=== PATIENT | female | born 1980 | race Two or more races ===

== ENCOUNTER 2017-07-27 06:05 | Emergency (ER) | payer BC, MEDICAID ==
[2017-07-27] MEDS ORDERED: predniSONE 20 MG Tab PO ONE (06:30)
[2017-07-27] MEDS ORDERED: diphenhydrAMINE 25 MG Cap PO ONE (06:30)
[2017-07-27] MEDS ORDERED: Famotidine 20 MG Tab PO ONE (06:30)
[2017-07-27 06:32] VITALS: BP 180/117
--- NOTE | 2017-07-27 06:46 | EDM.PDOC ---
ED HPI GENERAL MEDICAL PROBLEM - General Chief Complaint: Allergic Reaction Stated Complaint: rash Time Seen by Provider: 07/27/17 06:30 Source of Information: Reports: Patient History Limitations: Reports: No Limitations - History of Present Illness INITIAL COMMENTS - FREE TEXT/NARRATIVE: PT STATES WHILE SHE WAS WORKING LAST NIGHT DEVELOPED ITCHING TO RIGHT FOREARM. WOKE THIS AM AND ITCHING BECAME WORSE AND NOW HAS RED BUMPS. DENIES CP, SOB, TONGUE OR LIP EDEMA, NEW MEDICATION, DETERGENT, OR FOODS. Onset: Gradual Onset Date: 07/26/17 Duration: Day(s): Location: Reports: Upper Extremity, Right Quality: Reports: Burning Severity: Mild Improves with: Reports: None Worsens with: Reports: Other (SCRATCHING) Associated Symptoms: Reports: No Other Symptoms - Related Data Allergies Allergy/AdvReac Type Severity Reaction Status Date / Time Sulfa (Sulfonamide Allergy Airway Verified 07/27/17 06:09 Antibiotics) Tightness Home Meds: Home Meds Escitalopram [Lexapro] 10 mg PO DAILY 07/27/17 [History] LORazepam [Ativan] 0.5 mg PO PRN 07/27/17 [History] amLODIPine [Norvasc] 5 mg PO DAILY 07/27/17 [History] metFORMIN [Glucophage] 500 mg PO BIDMEALS 07/27/17 [History] Past Medical History HEENT History: Reports: Impaired Vision Genitourinary History: Reports: None [employer]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 Constitutional: Reports: No Symptoms HEENT: Reports: No Symptoms Respiratory: Reports: No Symptoms Cardiovascular: Reports: No Symptoms Endocrine: Reports: No Symptoms GI/Abdominal: Reports: No Symptoms : Reports: No Symptoms Musculoskeletal: Reports: No Symptoms Skin: Reports: Rash (RIGHT FOREARM) Neurological: Reports: No Symptoms Psychiatric: Reports: No Symptoms Hematologic/Lymphatic: Reports: No Symptoms Immunologic: Reports: No Symptoms ED EXAM GENERAL NO PERIP PULSE - Physical Exam Exam: See Below Exam Limited By: No Limitations General Appearance: Alert, WD/WN, No Apparent Distress Eye Exam: Bilateral Eye: Normal Inspection Nose: Normal Inspection, Normal Mucosa Throat/Mouth: Normal Inspection, Normal Oropharynx, No Airway Compromise Neck: Normal Inspection. No: Lymphadenopathy (L), Lymphadenopathy (R) Respiratory/Chest: No Respiratory Distress, Lungs Clear, Normal Breath Sounds Cardiovascular: Regular Rate, Rhythm Extremities: Normal Inspection, No Pedal Edema Neurological: Alert, Oriented, Normal Cognition Psychiatric: Normal Affect, Normal Mood Skin Exam: Warm, Dry, Intact, Normal Color, Rash (CONFLUENT RED PAPULES WITH ERYTHEMATOUS NAIL SCATCHING LINES) Lymphatic: No Adenopathy Course - Vital Signs Last Recorded V/S: Last Vital Signs Temp 98.5 F 07/27/17 06:30 Pulse 86 07/27/17 06:30 Resp 20 07/27/17 06:30 BP 180/117 H 07/27/17 06:30 Pulse Ox 97 07/27/17 06:30 - Orders/Labs/Meds Meds: Medications Discontinued Medications Generic Name Dose Route Start Last Admin Trade Name Freq PRN Reason Stop Dose Admin Diphenhydramine HCl 25 mg 07/27/17 06:30 Benadryl PO 07/27/17 06:31 ONETIME ONE Famotidine 20 mg 07/27/17 06:30 Pepcid PO 07/27/17 06:31 ONETIME ONE Prednisone 40 mg 07/27/17 06:30 Prednisone PO 07/27/17 06:31 ONETIME ONE - Re-Assessments/Exams Free Text/Narrative Re-Assessment/Exam: 07/27/17 07:07 PT AFEBRILE, NONTOXIC APPEARING, ITCHING AND RASH RESOLVING. Departure - Departure Time of Disposition: 07:08 Disposition: Home, Self-Care 01 Condition: Good Clinical Impression: Rash and nonspecific skin eruption Allergic reaction Qualifiers: Encounter type: initial encounter Qualified Code(s): T78.40XA - Allergy, unspecified, initial encounter - Discharge Information Instructions: Rash, Allergies, [id number] Forms: ED Department Discharge - Assessment/Plan Assessment:: RASH / ALLERGIC REACTION Plan: F/U WITH PCP
== END 2017-07-27 07:20 | disposition home or self-care (01) ==
LOC: KA.ED 06:05
DX: T78.40XA Allergy, unspecified, initial encounter (principal); R21 Rash and other nonspecific skin eruption; F41.9 Anxiety disorder, unspecified; E66.9 Obesity, unspecified; Z88.2 Allergy status to sulfonamides; Z79.899 Other long term (current) drug therapy; Z79.84 Long term (current) use of oral hypoglycemic drugs
CPT/HCPCS: 99283; A9270

== ENCOUNTER 2017-08-20 22:55 | Emergency (ER) | payer MEDICAID ==
[2017-08-20] MEDS ORDERED: Sodium Chloride 0.9% 5 ML Syringe FLUSH PRN (23:40)
[2017-08-20] MEDS ORDERED: Sodium Chloride 0.9% 1,000 ML IV ONE (23:40)
[2017-08-20] MEDS ORDERED: Ketorolac 30 MG/ML SDV IVPUSH ONE (23:40)
--- NOTE | 2017-08-20 23:46 | EDM.PDOC ---
ED HPI GENERAL MEDICAL PROBLEM - General Chief Complaint: General Stated Complaint: pelvic pain Time Seen by Provider: 08/20/17 23:38 Source of Information: Reports: Patient History Limitations: Reports: No Limitations - History of Present Illness INITIAL COMMENTS - FREE TEXT/NARRATIVE: PT PRESENTS WITH LOWER ABD AND BILAT FLANK PAIN ON/OFF FOR PAST MONTH. BECAME WORSE TODAY. SEEN AT [facility] A MONTH AGO AND HAD US WHICH IS SAID TO BE NEGATIVE. NO RADIOLOGY DOCUMENTATION AVAILABLE AT THIS TIME. SEEN 2 WEEKS AGO FOR SAME AND TOLD IT WAS OVULATION PAIN. SEEN AGAIN LAST WEEK AND GIVEN ABX FOR UTI. PAIN DESCRIBED SHARP AND RADIATING TO VAGINA. HAS NOT HAD MENSES FOR OVER A YEAR. DENIES DYSURIA, SEXUAL ACTIVITY, VAG DISCHARGE, BLOOD IN URINE OR STOOL, N/V/D, FEVER, OR ANY TRAUMA. ADMITS TO OVARIAN CYST YEARS AGO. Onset: Gradual Duration: Chronic, Getting Worse Location: Reports: Abdomen, Back Quality: Reports: Sharp Severity: Moderate Improves with: Reports: None Worsens with: Reports: None Associated Symptoms: Reports: No Other Symptoms. 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 - Related Data Allergies Allergy/AdvReac Type Severity Reaction Status Date / Time Sulfa (Sulfonamide Allergy Airway Verified 08/20/17 23:32 Antibiotics) Tightness Home Meds: Home Meds Escitalopram [Lexapro] 10 mg PO DAILY 07/27/17 [History] LORazepam [Ativan] 0.5 mg PO BID PRN 07/27/17 [History] amLODIPine [Norvasc] 5 mg PO DAILY 07/27/17 [History] metFORMIN [Glucophage] 500 mg PO BIDMEALS 07/27/17 [History] Past Medical History HEENT History: Reports: Impaired Vision Cardiovascular History: Reports: Hypertension Genitourinary History: Reports: None 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 Constitutional: Reports: No Symptoms HEENT: Reports: No Symptoms Respiratory: Reports: No Symptoms Cardiovascular: Reports: No Symptoms Endocrine: Reports: No Symptoms GI/Abdominal: Reports: Abdominal Pain : Reports: Flank Pain, Irregular Menses Musculoskeletal: Reports: No Symptoms Skin: Reports: No Symptoms Neurological: Reports: No Symptoms Psychiatric: Reports: No Symptoms Hematologic/Lymphatic: Reports: No Symptoms Immunologic: Reports: No Symptoms ED EXAM, GENERAL - Physical Exam Exam: See Below Exam Limited By: No Limitations General Appearance: Alert, WD/WN, Mild Distress Nose: Normal Inspection, Normal Mucosa, No Blood Throat/Mouth: Normal Inspection, Normal Oropharynx, No Airway Compromise Head: Atraumatic, Normocephalic Neck: Normal Inspection Respiratory/Chest: No Respiratory Distress, Lungs Clear, Normal Breath Sounds, No Accessory Muscle Use, Chest Non-Tender Cardiovascular: Regular Rate, Rhythm, No Murmur GI/Abdominal: Normal Bowel Sounds, Soft, No Abnormal Bruit, No Mass, Tender ( SUPRAPUBIC). No: Guarding, Rigid, Rebound Back Exam: CVA Tenderness (L), CVA Tenderness (R) Extremities: Normal Inspection, No Pedal Edema Neurological: Alert, Oriented, Normal Cognition Course - Orders/Labs/Meds Orders: Active Orders 24 hr Category Date Time Status Peripheral IV Care [RC] . DIRECTED Care 08/20/17 23:40 Ordered Abdomen Pelvis wo Cont [CT] Stat Exams 08/20/17 23:38 Ordered CBC WITH AUTO DIFF [HEME] Stat Lab 08/20/17 23:28 Ordered CMP [COMPREHENSIVE METABOLIC PN,CMP] [CHEM] Stat Lab 08/20/17 23:28 Ordered CULTURE URINE [RM] Stat Lab 08/20/17 23:38 Uncollected , SERUM [REF] Stat Lab 08/20/17 23:38 Ordered UA W/MICROSCOPIC [URIN] Stat Lab 08/20/17 23:29 Ordered Ketorolac [Toradol] Med 08/20/17 23:40 Once 30 mg IVPUSH ONETIME ONE Sodium Chloride 0.9% @ 999 MLS/HR (1000ml) Med 08/20/17 23:40 Ordered Sodium Chloride 0.9% [Normal Saline] 1,000 ml IV .BOLUS Sodium Chloride 0.9% [Syrex Flush] Med 08/20/17 23:40 Ordered 5 ml FLUSH Q8HR PRN Peripheral IV Insertion Adult [OM.PC] Routine Oth 08/20/17 23:40 Ordered - Radiology Interpretation Free Text/Narrative:: 5 mm left distal stone prox to left uvj and mild left hydronephrosis CT Results Date: 08/21/17 - Re-Assessments/Exams Free Text/Narrative Re-Assessment/Exam: 08/21/17 01:45 PT AFEBRILE, NONTOXIC APPEARING, VSS, PAIN RELIEVED, FEELS BETTER Departure - Departure Time of Disposition: 01:46 Disposition: Home, Self-Care 01 Condition: Good Clinical Impression: Renal calculus, left Hematuria Qualifiers: Hematuria type: unspecified type Qualified Code(s): R31.9 - Hematuria, unspecified - Discharge Information Instructions: Kidney Stones, Hematuria, Adult Referrals: Yaima Soria MD [Physician] - Additional Instructions: FOLLOW UP AT [facility] IN MORNING - My Orders Last 24 Hours: My Active Orders 08/20/17 23:28 CBC WITH AUTO DIFF [HEME] Stat CMP [COMPREHENSIVE METABOLIC PN,CMP] [CHEM] Stat 08/20/17 23:29 UA W/MICROSCOPIC [URIN] Stat 08/20/17 23:38 Abdomen Pelvis wo Cont [CT] Stat CULTURE URINE [RM] Stat , SERUM [REF] Stat 08/20/17 23:40 Peripheral IV Care [RC] . DIRECTED Ketorolac [Toradol] 30 mg IVPUSH ONETIME ONE Sodium Chloride 0.9% @ 999 MLS/HR (1000ml) Sodium Chloride 0.9% [Normal Saline] 1,000 ml IV .BOLUS Sodium Chloride 0.9% [Syrex Flush] 5 ml FLUSH Q8HR PRN Peripheral IV Insertion Adult [OM.PC] Routine - Assessment/Plan Last 24 Hours: My Active Orders 08/20/17 23:28 CBC WITH AUTO DIFF [HEME] Stat CMP [COMPREHENSIVE METABOLIC PN,CMP] [CHEM] Stat 08/20/17 23:29 UA W/MICROSCOPIC [URIN] Stat 08/20/17 23:38 Abdomen Pelvis wo Cont [CT] Stat CULTURE URINE [RM] Stat , SERUM [REF] Stat 08/20/17 23:40 Peripheral IV Care [RC] . DIRECTED Ketorolac [Toradol] 30 mg IVPUSH ONETIME ONE Sodium Chloride 0.9% @ 999 MLS/HR (1000ml) Sodium Chloride 0.9% [Normal Saline] 1,000 ml IV .BOLUS Sodium Chloride 0.9% [Syrex Flush] 5 ml FLUSH Q8HR PRN Peripheral IV Insertion Adult [OM.PC] Routine Assessment:: RENAL CALCULI / HEMATURIA Plan: F/U AT [facility] IN AM
[2017-08-21 00:22] LABS: CHLORIDE,CL 104 mmol/L (98-115); SODIUM,NA 141 mmol/L (136-145)
[2017-08-21 00:41] VITALS: BP 147/75
[2017-08-21] MEDS ORDERED: Ketorolac 30 MG/ML SDV IVPUSH ONE (01:20)
[2017-08-21] MEDS ORDERED: Ketorolac 30 MG/ML SDV ONE (01:21)
[2017-08-21] MEDS ORDERED: Acetaminophen/oxyCODONE 325-5 MG Tab PO ONE (01:47)
[2017-08-21] MEDS ORDERED: Ondansetron 4 MG Tab.DIS PO ONE (01:47)
== END 2017-08-21 02:15 | disposition home or self-care (01) ==
LOC: KA.ED 22:55
DX: N13.2 Hydronephrosis with renal and ureteral calculous obstruction (principal); I10 Essential (primary) hypertension; Z88.2 Allergy status to sulfonamides; Z79.84 Long term (current) use of oral hypoglycemic drugs; Z79.899 Other long term (current) drug therapy
CPT/HCPCS: 74176; 80053; 81001; 84702; 85025; 87086; 96361; 96374; 96376; 99284; A9270; J1885; J7030